=== PATIENT | male | born 1980 | race Caucasian/White ===

== ENCOUNTER 2018-03-03 07:48 | Emergency (ER) | payer SELFPAY ==
[2018-03-03] MEDS ORDERED: 0.9 % SODIUM CHLORIDE 1,000 ML IV ONE (08:08)
[2018-03-03 08:25] LABS: BASOPHILS % 0.4 (0.0-1.5); EOSINOPHILS % 2.2 % (0.0-6.8); MEAN CORPUSCULAR HEMOGLOBIN 31.6 pg (28.0-34.0); MONOCYTES % 7.7 % (0.0-11.0); NEUTROPHILS # 6.3 # k/uL (1.4-7.7)
[2018-03-03] MEDS ORDERED: NORMAL SALINE 500 ML IV.SOLN IV SCH (08:30)
[2018-03-03 08:37] LABS: eGFR (African) > 60; eGFR (Non-African) > 60
--- NOTE | 2018-03-03 09:03 | ED Physician Documentation ---
Abdominal Pain - HISTORIAN Historian: patient - HPI Stated Complaint: abd pain Chief Complaint: Abdominal Pain Onset: days ago (since Saturday) Timing: worse Context: denies: out of country travel, bad food, recent trauma Severity: moderate Quality: pain, aching Associated Symptoms: diarrhea Exacerbated by: food Relieved by: nothing Further Comments: yes (37 year old male patient presents with complaints of diarrhea since Saturday. Patient states he is able to eat and drink with no nausea; c/o diarrhea with eating any food. Has not taken any OTC anti- diarrheal. Ate [place] food last night. C/O abd cramping this morning. Denies any fever or chills.) - ROS CONST: no problems GI/: none CVS/RESP: none EYES/ENT: none MS/SKIN/LYMPH: none NEURO/PSYCH: none - SOCIAL HX Smoking History: cigarettes - FAMILY HX Family History: denies: none - PAST HX Past History: none Other History: none Home Medications: Ambulatory Orders Medication Instructions Recorded NK [NK] 09/23/15 Allergies/Adverse Reactions: Allergies Allergy/AdvReac Type Severity Reaction Status Date / Time No Known Allergies Allergy Verified 03/03/18 08:01 - VITAL SIGNS Vital Signs: Vital Signs Temp Pulse Resp BP Pulse Ox 97.1 F L 68 16 120/75 95 03/03/18 07:54 03/03/18 09:25 03/03/18 09:25 03/03/18 09:25 03/03/18 07:54 - REVIEWED ASSESSMENTS Nursing Assessment Reviewed: Yes Vitals Reviewed: Yes Progress - Progress Progress: Reviewed lab and UA results with patient and . Education on lomotil, reviewed discharge instructions. Patient verbalized understanding. ED Results Lab/Radiology - Lab Results Lab Results: Lab Results 03/03/18 03/03/18 08:10 08:10 WBC 9.60 K/ul K/ul (4.00-12.00) RBC 5.39 M/ul H M/ul (3.90-5.20) Hgb 17.0 g/dL g/dL (12.0-18.0) Hct 50.6 % % (37.0-53.0) MCV 94.0 fl fl (80.0-100.0) MCH 31.6 pg pg (28.0-34.0) MCHC 33.7 g/dL g/dL (30.0-36.0) RDW 13.0 % % (11.3-14.3) Plt Count 207 K/mm3 K/mm3 (130-400) Neut % (Auto) 65.3 % % (39.0-79.0) Lymph % (Auto) 21.8 % % (16.0-50.0) Hinds % (Auto) 7.7 % % (0.0-11.0) Eos % (Auto) 2.2 % % (0.0-6.8) Baso % (Auto) 0.4 (0.0-1.5) Neut # (Auto) 6.3 # k/uL # k/uL (1.4-7.7) Lymph # (Auto) 2.1 # k/uL # k/uL (0.6-4.0) Hinds # (Auto) 0.7 # k/uL # k/uL (0.0-0.9) Eos # (Auto) 0.2 # k/uL # k/uL (0.0-0.6) Baso # (Auto) 0.0 # k/uL # k/uL (0.0-0.5) Reactive Lymphs % 2.6 % % (0.0-5.0) Reactive Lymphs # 0.2 # k/uL # k/uL (0.0-0.8) Sodium 141 mmol/L mmol/L (136-145) Potassium 4.1 mmol/L mmol/L (3.5-5.1) Chloride 104 mmol/L mmol/L (98-107) Carbon Dioxide 28 mmol/L mmol/L (22-30) BUN 15 mg/dL mg/dL (9-20) Creatinine 1.10 mg/dL mg/dL (0.66-1.25) Estimated Creat Clear 186 Est GFR ( Amer) > 60 (60 - ) Est GFR (Non-Af Amer) > 60 (60 - ) Glucose 108 mg/dL H mg/dL (74-106) Calcium 9.4 mg/dL mg/dL (8.4-10.2) Total Bilirubin 0.2 mg/dL mg/dL (0.2-1.3) AST 21 U/L U/L (15-46) ALT 34 U/L U/L (13-69) Alkaline Phosphatase 82 U/L U/L (38-126) Total Protein 8.1 g/dL g/dL (6.3-8.2) Albumin 4.6 g/dL g/dL (3.5-5.0) - Orders Orders: ED Orders Category Date Time Status Place IV Lock 1T Care 03/03/18 08:00 Active CBC/PLATELET/DIFF Routine Lab 03/03/18 08:10 Completed CMP Routine Lab 03/03/18 08:10 Completed UA W MICRO [UA W/MICRO IF INDICATED] Routine Lab 03/03/18 08:07 Ordered 0.9 % Sodium Chloride [Normal Saline] Med 03/03/18 08:30 Ordered 1,000 ml IV 1T 0.9 % Sodium Chloride [Normal Saline] 1,000 ml Med 03/03/18 08:08 Discontinued IV .STK-MED Diphenoxylate HCl/Atropine [Lomotil] Med 03/03/18 09:07 Discontinued 2 each PO NOW ONE Abdominal Pain Physical Exam - Physical Exam General Appearance: no acute distress EENT: eye inspection normal, RAFAEL RESPIRATORY: no resp distress, chest non-tender, breath sounds normal CVS: reg rate & rhythm, heart sounds normal, equal pulses, no murmur, no gallop , PMI nml, no JVD, no friction rub, 24 ABDOMEN: soft, no organomegaly, no abdominal bruit, no distension, decreased BS , other (obese) BACK: normal inspection, no CVA tenderness SKIN: normal color, warm/dry, NR, INT, PAL, DR EXTREMITIES: non-tender, normal range of motion, no evidence of injury, no edema , J, ADJUNCT PROFESSOR NEURO: oriented X3, CN's nml as tested, motor nml, sensation nml Vital Signs: Vital Signs Temp Pulse Resp BP Pulse Ox 97.1 F L 68 16 120/75 95 03/03/18 07:54 03/03/18 09:25 03/03/18 09:25 03/03/18 09:25 03/03/18 07:54 Discharge Clincal Impression: Diarrhea Qualifiers: Diarrhea type: unspecified type Qualified Code(s): R19.7 - Diarrhea, unspecified Referrals: Nata Rivas MD [REFERRING] - 2 Days Additional Instructions: greenskeeper supervisor your prescription and start it today as needed. Diet: Clear liquids Sprite/7-up Juices apple, white grape Gatorade/Powerade Jello Popsicles When tolerating clear liquids, advance to bland/brat diet - such as crackers, rice, Bananas, apples/applesauce or toast Return to the emergency department or call your doctor, if you are having severe abdominal pain, fever >101.0, or if there is blood in the vomit or diarrhea, or you cannot keep down liquids or solid food. Condition: Stable Disposition: 01 HOME, SELF-CARE Decision to Admit: NO Decision Time: 09:03
[2018-03-03] MEDS ORDERED: DIPHENOXYLATE HCL/ATROPINE 1 EACH TABLET PO ONE (09:07)
[2018-03-03 09:27] VITALS: BP 120/75
[2018-03-04 08:48] LABS: APPEARANCE,URINE CLEAR (CLEAR); COLOR,URINE AMBER (YELLOW); OCCULT BLOOD,URINE NEGATIVE (NEGATIVE); PH URINE 5.5 (5.0 - 8.0); UROBILINOGEN URINE 0.2 Eu (0.2-1.0)
== END 2018-03-03 09:26 | disposition home or self-care (01) ==
LOC: ED 07:48
DX: R19.7 Diarrhea, unspecified (principal)
CPT/HCPCS: 80053; 81002; 85025; 96365; 99284; J7030; S1016